=== PATIENT | male | born 1965 | race Caucasian/White ===

== ENCOUNTER 2016-08-09 10:41 | Emergency (ER) | payer BC ==
[2016-08-09 10:53] VITALS: BP 151/91
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
== END 2016-08-09 11:50 | disposition home or self-care (01) ==
LOC: UCCORT 10:41
DX: B34.9 Viral infection, unspecified (principal); R51 Headache; J45.901 Unspecified asthma with (acute) exacerbation; F17.210 Nicotine dependence, cigarettes, uncomplicated
CPT/HCPCS: 99212; G0463

== ENCOUNTER 2017-08-12 18:18 | Emergency (ER) | payer BC ==
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
[2017-08-12 18:42] VITALS: BP 145/87
== END 2017-08-12 19:05 | disposition home or self-care (01) ==
LOC: UCCORT 18:18
DX: S61.216A Laceration without foreign body of right little finger without damage to nail, initial encounter (principal); W27.8XXA Contact with other nonpowered hand tool, initial encounter; Y93.9 Activity, unspecified; Y92.009 Unspecified place in unspecified non-institutional (private) residence as the place of occurrence of the external cause; F17.210 Nicotine dependence, cigarettes, uncomplicated
CPT/HCPCS: 12001; 99211; G0463

== ENCOUNTER 2019-07-01 13:31 | Emergency (ER) | payer BC ==
[2019-07-01 14:01] VITALS: BP 158/85
[2019-07-01] MEDS ORDERED: Albuterol/Ipratropium NEB.SOL* Albuterol 2.5 MG/Ipratropium 0.5 MG 3 ML INH ONE (14:08)
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
== END 2019-07-01 14:52 | disposition home or self-care (01) ==
LOC: UCCORT 13:31
DX: J32.9 Chronic sinusitis, unspecified (principal); J40 Bronchitis, not specified as acute or chronic; J18.9 Pneumonia, unspecified organism; J44.9 Chronic obstructive pulmonary disease, unspecified; F17.210 Nicotine dependence, cigarettes, uncomplicated; R91.8 Other nonspecific abnormal finding of lung field; Z79.899 Other long term (current) drug therapy
CPT/HCPCS: 71046; 99212; A9270-GY; G0463